=== PATIENT | female | born 1975 | race Caucasian/White ===

== ENCOUNTER 2018-05-10 14:07 | Day surgery (SDC) | payer OTHER ==
[~2018-05-10] VITALS: Ht 167.6 cm; Wt 60.0 kg
[2018-05-10 15:17] VITALS: Ht 167.6 cm; Wt 60.0 kg
[2018-05-10] MEDS ORDERED: CALCIUM DAILY (15:24)
[2018-05-10] MEDS ORDERED: LANSOPRAZOLE (15:24)
[2018-05-10] MEDS ORDERED: VIT. D DAILY (15:24)
[2018-05-10 15:34] VITALS: BP 119/69; PULSE 67; RESP 18
--- NOTE | 2018-05-10 16:07 | PREAC ---
Date/Time of Note Date/Time of Note DATE: 05/10/18 TIME: 16:07 Anesthesia Eval and Record Evaluation Time Pre-Procedure Interview DATE: 05/10/18 TIME: 16:07 Age 43 Sex female NPO: 8 hrs Preoperative diagnosis constipation Planned procedure colonoscopy Past Medical History Past Medical History: None Surgery & Anesthesia Issues No known issue Meds Anticoagulation: No Beta Jeb within 24 hr: No Reason Beta Jeb not given: Pt. not on B-Jeb Reported Medications [Prevacid Daily] No Conflict Check 05/10/18 [Calcium Daily] No Conflict Check 05/10/18 [Vit. D Daily] No Conflict Check 05/10/18 Meds reviewed: Yes Allergies Coded Allergies: No Known Drug Allergies (Verified Allergy, Unknown, 05/10/18) Allergies Reviewed: Yes Labs/Studies Labs Reviewed: Reviewed by anesthesiologist test: Negative Studies: ECG (n/a), CXR (n/a) Pre-procedure Exam Last vitals Vital Signs Date Temp Pulse Resp B/P (MAP) Pulse Ox O2 O2 Flow FiO2 Time Delivery Rate 05/10/18 97.5 67 18 119/69 100 Room Air 15:34 (86) Airway: Adequate mouth opening Mallampati: Mallampati I Teeth: Normal Lung: Normal Heart: Normal ASA Physical Status ASA physical status: 2 Emergency: None Planned Anesthetic General/MAC: MAC Planned Pain Management Parenteral pain med Pre-operative Attestations Prior to commencing anesthesia and surgery, the patient was re-evaluated, there was verification of: *The patient's identity *The results of appropriate recent lab work and preoperative vital signs *The above evaluation not changing prior to induction *Anesthetic plan, risk benefits, alternative and complications discussed with patient/family; questions answered; patient/family understands, accepts and wishes to proceed. TETO MENDEZ MD May 10, 2018 16:07
[2018-05-10] MEDS ORDERED: PROPOFOL 20 ML ONE ×2 (16:08→16:35)
[2018-05-10 16:30] VITALS: BP 105/70; PULSE 64; RESP 20
[2018-05-10] MEDS ORDERED: ONDANSETRON 4 MG INJ IV PRN (16:30)
[2018-05-10 16:35] VITALS: BP 108/71; PULSE 70; RESP 20
[2018-05-10 16:55] VITALS: BP 109/71; PULSE 67; RESP 16
--- NOTE | 2018-05-11 09:29 | PAC ---
Date/Time of Note Date/Time of Note DATE: 05/11/18 TIME: 09:28 Post-Anesthesia Notes Post-Anesthesia Note Last documented vital signs Vital Signs Date Temp Pulse Resp B/P (MAP) Pulse Ox O2 O2 Flow FiO2 Time Delivery Rate 05/10/18 97.1 67 16 109/71 100 Room Air 16:55 (84) Activity: WNL Respiratory function: WNL Cardiovascular function: WNL Mental status: Baseline Pain reasonably controlled: Yes Hydration appropriate: Yes Nausea/Vomiting absent: No TETO MENDEZ MD May 11, 2018 09:29
== END 2018-05-10 18:04 | disposition home or self-care (01) ==
LOC: GIL 14:07
PROVIDERS: ATTEND Internal Medicine Gastroenterology
DX: R19.4 Change in bowel habit (principal); K64.8 Other hemorrhoids
CPT/HCPCS: 45378; 84703; Z7610